=== PATIENT | female | born 1995 | race Caucasian/White ===

== ENCOUNTER 2017-11-24 00:02 | Emergency (ER) | payer OTHER ==
[2017-11-24 00:11] VITALS: BP 133/84
[2017-11-24] MEDS ORDERED: PREDNISONE 20 MG TABLET PO ONE (00:43)
[2017-11-24] MEDS ORDERED: BENZONATATE 100 MG CAPSULE PO ONE (00:43)
--- NOTE | 2017-11-24 00:47 | ER Document Report ---
HPI - HPI Patient complains to provider of: cough, congestion Pain Level: 4 Context: Patient is a 22-year-old female comes emergency department for chief complaint of 2 weeks of cough. She states that she has been congested but her cough has worsened and today she could not stop coughing. She denies fever, wheezing, difficulty breathing. She does not smoke. She states she gets "bronchitis" every year. She denies any daily medications. LMP within the past month. Past Medical History - General Information source: Patient - Social History Smoking Status: Never Smoker Frequency of alcohol use: None Drug Abuse: None Lives with: Family Family History: Reviewed & Not Pertinent - Medical History Medical History: Negative Surgical Hx: Negative - Immunizations Immunizations up to date: Yes Hx Diphtheria, Pertussis, Tetanus Vaccination: Yes Vertical Provider Document - CONSTITUTIONAL General Appearance: WD/WN, No Apparent Distress - INFECTION CONTROL TRAVEL OUTSIDE OF THE [place] IN LAST 30 DAYS: No - HEENT HEENT: Atraumatic, Normocephalic. negative: Normal ENT Exam - Sinus and nasal congestion, otherwise there is postnasal drip noted, Pharyngeal Exudate, Pharyngeal Tenderness, Tympanic Membrane Red, Tympanic Membrane Bulging - NECK Neck: Normal Inspection - RESPIRATORY Respiratory: Breath Sounds Normal - Frequent cough but lungs are clear and normal breath sounds throughout, No Respiratory Distress. negative: Wheezing O2 Sat by Pulse Oximetry: 98 - CARDIOVASCULAR Cardiovascular: Regular Rate, Regular Rhythm - GI/ABDOMEN Gastrointestinal: Abdomen Soft, Abdomen Non-Tender - BACK Back: Normal Inspection - MUSCULOSKELETAL/EXTREMETIES Musculoskeletal/Extremeties: MAEW, FROM, Non-Tender - NEURO Level of Consciousness: Awake, Alert, Appropriate - DERM Integumentary: Warm, Dry, No Rash Course - Re-evaluation Re-evalutation: Patient does have frequent cough, however her lungs are clear, she does not appear to be in distress, she has no labored breathing or retractions, no hypoxia or tachypnea. No fever. Patient with sinus congestion and drainage with postnasal drip. Consistent with bronchitis symptoms, low suspicion of pneumonia, very low suspicion of acute emergent intrathoracic abnormality. Discussed with patient, x-ray was declined. Treating symptoms, discussed recommendations including allergy medications along with prednisone, Tessalon, discussed follow-up and return precautions. Patient states understanding and agreement. - Vital Signs Vital signs: Temp Pulse Resp BP Pulse Ox 98.5 F 81 16 133/84 H 98 11/24/17 00:10 11/24/17 00:10 11/24/17 00:10 11/24/17 00:10 11/24/17 00:10 Discharge - Discharge Clinical Impression: Cough Upper respiratory infection Qualifiers: URI type: unspecified URI Qualified Code(s): J06.9 - Acute upper respiratory infection, unspecified Condition: Stable Disposition: HOME, SELF-CARE Additional Instructions: Your examination and symptoms are consistent with bronchitis. Take prednisone as prescribed, take Tessalon for cough, take Benadryl/diphenhydramine at night. Humidifier, steam, and plenty fluids can help as well. In the future consider Zyrtec or Didi for seasonal allergies as well. Follow-up with primary care. Return for any concerning symptoms including difficulty breathing , spiking fever, or any other concerning symptoms. Prescriptions: Benzonatate [Tessalon Perle 100 mg Capsule] 100 mg PO Q8HP PRN #40 cap PRN Reason: Azithromycin 250 mg PO ASDIR PRN #6 tablet PRN Reason: Prednisone [Deltasone 10 mg Tablet] 10 mg PO ASDIR PRN #21 tablet PRN Reason:
== END 2017-11-24 01:10 | disposition home or self-care (01) ==
LOC: ER 00:02
DX: J06.9 Acute upper respiratory infection, unspecified (principal); R05 Cough; R09.81 Nasal congestion; R09.82 Postnasal drip
CPT/HCPCS: 99283; J7512

== ENCOUNTER 2020-06-06 22:08 | Emergency (ER) | payer BC, OTHER ==
--- NOTE | 2020-06-06 22:24 | ER Document Report ---
ED Medical Screen (RME) - General Chief Complaint: Post Surgical Pain Stated Complaint: NEAR SYNCOPE//POST OP PAIN Time Seen by Provider: 06/06/20 22:16 Mode of Arrival: Wheelchair Information source: Patient Notes: 24-year-old female presented to ED for "feeling like she is going to pass out. She states she is nausea and vomiting since this evening has vomited at least 5 or 6 times. Short of breath muscle aches weakness. She states she had breast augmentation last week and has been home since then. She states she ate some chicken tonight and started vomiting. She states the only medical history she has is the breast augmentation. She does not smoke rarely drinks but occasionally drinks pop but none recently. I have greeted and performed a rapid initial assessment of this patient. A comprehensive ED assessment and evaluation of the patient, analysis of test results and completion of medical decision making process will be conducted by an additional ED providers. TRAVEL OUTSIDE OF THE [place] IN LAST 30 DAYS: No - Related Data Allergies/Adverse Reactions: No Known Allergies Allergy (Unverified 11/24/17 00:08) Past Medical History Renal/ Medical History: Denies: Hx Peritoneal Dialysis - Immunizations Immunizations up to date: Yes Hx Diphtheria, Pertussis, Tetanus Vaccination: Yes
[2020-06-06] MEDS ORDERED: ONDANSETRON HCL INJ/PF 4 MG/2 ML SDV IV ONE (23:05)
[2020-06-06] MEDS ORDERED: FENTANYL CITRATE INJ/PF 100 MCG/2 ML AMPUL IV ONE (23:05)
--- NOTE | 2020-06-06 23:17 | ER Document Report ---
Entered by CHARLENE NORTH SCRIBE 06/06/20 [id number] Acting as scribe for:DAV OSEGUERA DO ED General - General Chief Complaint: Nausea/Vomiting/Diarrhea Stated Complaint: NEAR SYNCOPE//POST OP PAIN Time Seen by Provider: 06/06/20 22:16 Mode of Arrival: Wheelchair Information source: Patient Notes: This 24 year old female patient presents to the emergency department today with complaints of nausea today. She reports that she had a breast augmentation about a week ago and she has been at home since with decreased P.O intake. She states she thinks she is dehydrated. She has been nauseated with dry heaving today with associated near-syncope. She denies any personal or family history of PE/DVT. She denies any chest pain or shortness of breath. TRAVEL OUTSIDE OF THE [place] IN LAST 30 DAYS: No - Related Data Allergies/Adverse Reactions: No Known Allergies Allergy (Unverified 11/24/17 00:08) Home Medications: antibiotic Past Medical History - General Information source: Patient - Social History Smoking Status: Current Some Day Smoker Cigarette use (# per day): Yes Frequency of alcohol use: Occasional Drug Abuse: Marijuana Family History: Reviewed & Not Pertinent Patient has homicidal ideation: No - Medical History Medical History: Negative Past Surgical History: Reports: Other - Breast Augmentation - Immunizations Immunizations up to date: Yes Hx Diphtheria, Pertussis, Tetanus Vaccination: Yes Review of Systems - Review of Systems Constitutional: No symptoms reported EENT: No symptoms reported Cardiovascular: See HPI, Syncope - near syncope. denies: Chest pain Respiratory: denies: Short of breath Gastrointestinal: See HPI, Nausea. denies: Vomiting Genitourinary: No symptoms reported Female Genitourinary: No symptoms reported Musculoskeletal: No symptoms reported Skin: No symptoms reported Hematologic/Lymphatic: No symptoms reported Neurological/Psychological: No symptoms reported -: Yes All other systems reviewed and negative Physical Exam - Vital signs Vitals: Temp Pulse Resp BP Pulse Ox 98 F 103 H 14 116/72 100 06/06/20 22:37 06/06/20 22:37 06/06/20 22:37 06/06/20 22:37 06/06/20 22:37 - Notes Notes: Physical Exam: General: Alert, appears well. HEENT: Normocephalic. Atraumatic. PERRL. Extraocular movements intact. Oropharynx clear. Neck: Supple. Non-tender. Respiratory: No respiratory distress. Clear and equal breath sounds bilaterally. Cardiovascular: Regular rate and rhythm. Abdominal: Normal Inspection. Non-tender. No distension. Normal Bowel Sounds. Back: No gross abnormalities. Extremities: Moves all four extremities. Upper extremities: Normal inspection. Normal ROM. Lower extremities: Normal inspection. No edema. Normal ROM. Neurological: Normal cognition. AAOx4. Normal speech. Psychological: Normal affect. Normal Mood. Skin: Bandages above breasts bilaterally. Course - Re-evaluation Re-evalutation: 06/07/20 02:21 MDM 24 year old is s/p breast augmentation in [place] earlier this month and has follow up scheduled today. Pain in breasts "got ahead of her reportedly" and she was having nausea and vomiting and dizziness - feeling like she may pass out at home. Dry heaving here. Lab workup shows elevated WBC and transaminases elevated mildly. She is a healthy 24 yr old with no significant pmh, not and has no previous lab work here. No known h/o lft abnormality. Abd is soft and nontender on my exam. Dressings are not removed but she tells me no fever or drainage. Checking ct of abd/ pelvis to assess possibility of any inflamatory changes in RUQ warner. She is clinically stable and nontoxic and pending ct and ua when I turn here over to Dr. Perez. While pe is always a post op concern this young lady has no chest pain or sob, nor leg pain or swelling and no family h/o clotting disorder. Further not a ocp taker. Feel no need to an pe in this case. - Vital Signs Vital signs: Temp Pulse Resp BP Pulse Ox 98.0 F 103 H 19 133/97 H 100 06/07/20 01:33 06/06/20 22:37 06/07/20 01:01 06/07/20 01:01 06/07/20 01:01 - Laboratory Result Diagrams: 06/06/20 23:52 06/06/20 23:52 Laboratory results interpreted by me: 06/06/20 06/06/20 23:52 23:52 WBC 12.4 H Absolute Neuts (auto) 10.0 H Seg Neutrophils % 80.9 H AST 146 H ALT 148 H Discharge - Discharge Clinical Impression: Post-operative pain, Transaminitis Condition: Stable Disposition: HOME, SELF-CARE Instructions: Antinausea Medication ([facility]), Family Physicians / Practices, Intravenous (IV) Fluids ([facility]), Reglan ([facility]), Vomiting ([facility]) Additional Instructions: Rest, clear liquids, keep your follow up with your surgeon today. Please return here for any problems or concerns, including but not limited to chest pain, shortness of breath, persistent vomiting or other concerns. Prescriptions: Ondansetron [Zofran Odt 4 mg Tablet] 1 - 2 tab PO Q4HP PRN #10 tab.rapdis PRN Reason: Promethazine HCl 12.5 mg RC TID #6 supp.rect I personally performed the services described in the documentation, reviewed and edited the documentation which was dictated to the scribe in my presence, and it accurately records my words and actions.
--- NOTE | 2020-06-06 23:18 | RADIOLOGY REPORT (SQ) ---
EXAM DESCRIPTION: XR CHEST 1 VIEW COMPLETED DATE/TME: 06/06/2020 22:24 CLINICAL HISTORY: 24 years, Female, #1 SYNCOPE COMPARISON: None. NUMBER OF VIEWS: One TECHNIQUE: Single frontal view of the chest was obtained portably LIMITATIONS: None. FINDINGS: Cardiac and mediastinal contours are normal. Lungs are clear. No pleural effusion or pneumothorax. IMPRESSION: No acute disease. copyright 2010 [employer]- All Rights Reserved
[2020-06-07 00:07] LABS: ABSOLUTE EOSINOPHILS # (AUTO) 0.1 10^3/uL (0.0-0.6); ABSOLUTE LYMPHOCYTES (AUTO) 1.7 10^3/uL (0.5-4.7); ABSOLUTE MONOCYTES (AUTO) 0.6 10^3/uL (0.1-1.4); BASOPHILS % (AUTO) 0.3 % (0-2); EOSINOPHILS % (AUTO) 0.4 % (0-6); HEMATOCRIT 39.8 % (36.0-47.0); HEMOGLOBIN 13.6 g/dL (12.0-15.5); LYMPHOCYTES % (AUTO) 13.6 % (13-45); MEAN CORPUSCULAR HEMOGLOBIN 30.3 pg (27.0-33.4); MEAN CORPUSCULAR VOLUME 89 fl (80-97); MONOCYTES % (AUTO) 4.8 % (3-13); PLATELET COUNT 299 10^3/uL (150-450); RED BLOOD COUNT 4.48 10^6/uL (3.72-5.28); RED CELL DISTRIBUTION WIDTH 12.7 % (11.5-14.0); SEGMENTED NEUTROPHILS % (AUTO) 80.9 % (42-78); TOTAL CELLS COUNTED % (AUTO) 100 %; WHITE BLOOD COUNT 12.4 10^3/uL (4.0-10.5)
[2020-06-07] MEDS: RINGERS SOLUTION,LACTATED 1,000 ML IV PRN ×2 (00:11→00:47)
[2020-06-07 00:19] LABS: ALKALINE PHOSPHATASE 80 U/L (38-126); ANION GAP 10 (5-19); ASPARTATE AMINO TRANSFERASE 146 U/L (14-36); BILIRUBIN,DIRECT 0.2 mg/dL (0.0-0.4); BILIRUBIN,TOTAL 1.3 mg/dL (0.2-1.3); BLOOD UREA NITROGEN 14 mg/dL (7-20); CALCIUM 9.8 mg/dL (8.4-10.2); CARBON DIOXIDE 27 mmol/L (22-30); CHLORIDE 102 mmol/L (98-107); CREATINE KINASE 118 U/L (30-135); GLUCOSE 110 mg/dL (75-110); POTASSIUM 4.3 mmol/L (3.6-5.0)
[2020-06-07] MEDS ORDERED: METOCLOPRAMIDE HCL INJ/PF 10 MG/2 ML SDV IV ONE (01:12)
[2020-06-07] MEDS ORDERED: DIPHENHYDRAMINE HCL 50 MG/ML VIAL IV ONE (01:12)
--- NOTE | 2020-06-07 02:44 | RADIOLOGY REPORT (SQ) ---
CT abdomen and pelvis with contrast on 06/07/2020 at 2:17 AM CLINICAL INDICATION: Elevated white blood cell count, elevated LFTs, vomiting, status post breast implant surgery seven days ago TECHNIQUE: Multiple axial images are obtained throughout the abdomen and pelvis following the administration of IV contrast, 70 mL of Omnipaque 350contrast was administered intravenously without complication. This exam was performed according to our departmental dose-optimization program, which includes automated exposure control, adjustment of the mA and/or kV according to patient size and/or use of iterative reconstruction technique. Total DLP is 1142.45 mGy*cm. COMPARISON: None FINDINGS: Abdomen: Bilateral breast implants are partially imaged. There is subcutaneous air in the anterior chest wall consistent with the patient's recent surgery. The lung bases are clear. The solid abdominal organs are unremarkable. There is no abdominal adenopathy. There is no free fluid or free air within the abdomen. The abdominal portion of the GI tract is unremarkable. Pelvis: Pelvic organs appear unremarkable by CT. No free fluid is noted in the pelvis. There is no pelvic adenopathy. Pelvic portion of the GI tract including the appendix is unremarkable. No bony abnormality is noted. IMPRESSION: No acute abnormality.
[2020-06-07 02:46] LABS: APPEARANCE,URINE CLOUDY; BILIRUBIN,URINE NEGATIVE (NEGATIVE); COLOR,URINE YELLOW; GLUCOSE, URINE NEGATIVE (NEGATIVE); KETONES,URINE NEGATIVE (NEGATIVE); LEUKOCYTE ESTERASE,URINE LARGE (NEGATIVE); NITRITE,URINE NEGATIVE (NEGATIVE); PROTEIN,URINE 30 mg/dL (NEGATIVE); URINE SPECIFIC GRAVITY 1.016; UROBILINOGEN,URINE NEGATIVE mg/dL (<2.0)
[2020-06-07 03:02] LABS: ADD MANUAL MICROSCOPIC YES
[2020-06-07 03:04] LABS: BACTERIA,URINE 1+ /HPF; RBC,URINE RARE /HPF
[2020-06-07 04:28] VITALS: BP 102/66
--- NOTE | 2020-06-07 10:13 | EKG REPORT ---
SEVERITY:- ABNORMAL ECG - SINUS RHYTHM PROBABLE LEFT ATRIAL ABNORMALITY PROBABLE LEFT VENTRICULAR HYPERTROPHY : Confirmed by: Kaylynn Olivier MD 07-Jun-2020 10:12:39
== END 2020-06-07 04:51 | disposition home or self-care (01) ==
LOC: ER 22:08
DX: R74.0 Nonspecific elevation of levels of transaminase and lactic acid dehydrogenase [LDH] (principal); G89.18 Other acute postprocedural pain; R11.2 Nausea with vomiting, unspecified; R19.7 Diarrhea, unspecified; R55 Syncope and collapse; Z98.890 Other specified postprocedural states; F17.210 Nicotine dependence, cigarettes, uncomplicated; Z79.899 Other long term (current) drug therapy
CPT/HCPCS: 93005; 99285; 96361; 96374; 96375; 36415; 82550; 83690; 84703; 85025; 80053; 81001; 84484; 71045; 74177; 93010; J1200; J3010; J2765; J2405; J7120